=== PATIENT | male | born 1935 | race Caucasian/White ===

== ENCOUNTER 2023-12-21 06:00 | Outpatient (RCR) | payer MEDICARE, SELFPAY | END 2023-12-31 23:59 | disposition home or self-care (01) | LOC: MST 06:00 | PROVIDERS: Visit Provider Nurse Practitioner Family | DX: Z09 Encounter for follow-up examination after completed treatment for conditions other than malignant neoplasm (principal); Z86.73 Personal history of transient ischemic attack (TIA), and cerebral infarction without residual deficits; D64.9 Anemia, unspecified; I69.320 Aphasia following cerebral infarction | CPT/HCPCS: 92507; 92523 ==

== ENCOUNTER 2024-01-01 06:00 | Outpatient (RCR) | payer MEDICARE, SELFPAY | END 2024-01-30 23:59 | disposition home or self-care (01) | LOC: MST 06:00 | PROVIDERS: Visit Provider Nurse Practitioner Family | DX: I69.320 Aphasia following cerebral infarction (principal); D64.9 Anemia, unspecified | CPT/HCPCS: 92507 ==

== ENCOUNTER → 2024-03-24 13:53 | Outpatient (BNVA) | payer MEDICARE, SELFPAY | PROVIDERS: Referring Provider Nurse Practitioner Family; Visit Provider Nurse Practitioner Family | DX: L81.4 Other melanin hyperpigmentation (principal); L82.1 Other seborrheic keratosis; D48.5 Neoplasm of uncertain behavior of skin; L57.0 Actinic keratosis | CPT/HCPCS: 11102; 17000; 69100; 99203 ==

== ENCOUNTER → 2024-04-07 07:53 | Outpatient (BNVA) | payer MEDICARE, SELFPAY | PROVIDERS: Visit Provider Dermatology | DX: C44.311 Basal cell carcinoma of skin of nose (principal) | CPT/HCPCS: 14060; 17311 ==

== ENCOUNTER → 2024-04-14 08:15 | Outpatient (BNVA) | payer MEDICARE, SELFPAY | PROVIDERS: Visit Provider Dermatology | DX: I10 Essential (primary) hypertension (principal); C44.222 Squamous cell carcinoma of skin of right ear and external auricular canal; C44.319 Basal cell carcinoma of skin of other parts of face | CPT/HCPCS: 99213 ==

== ENCOUNTER 2024-04-30 06:30 | Outpatient (RCR) | payer MEDICARE, SELFPAY | END 2024-05-30 23:59 | disposition home or self-care (01) | LOC: MST 06:30 | PROVIDERS: Visit Provider Family Medicine | DX: I69.320 Aphasia following cerebral infarction (principal); I63.9 Cerebral infarction, unspecified | CPT/HCPCS: 92507; 92523 ==

== ENCOUNTER → 2024-05-03 09:28 | Outpatient (BNVA) | payer MEDICARE, SELFPAY | PROVIDERS: Visit Provider Dermatology | DX: C44.219 Basal cell carcinoma of skin of left ear and external auricular canal (principal); C44.222 Squamous cell carcinoma of skin of right ear and external auricular canal | CPT/HCPCS: 15260; 17311 ==

== ENCOUNTER → 2024-05-16 13:22 | Outpatient (BNVA) | payer MEDICARE, SELFPAY | PROVIDERS: Visit Provider Dermatology | DX: C44.222 Squamous cell carcinoma of skin of right ear and external auricular canal (principal) | CPT/HCPCS: 99213 ==

== ENCOUNTER → 2024-05-30 11:09 | Outpatient (BNVA) | payer MEDICARE, SELFPAY | PROVIDERS: Visit Provider Dermatology | DX: C44.222 Squamous cell carcinoma of skin of right ear and external auricular canal (principal); C44.219 Basal cell carcinoma of skin of left ear and external auricular canal | CPT/HCPCS: 99213 ==

== ENCOUNTER 2024-05-31 06:00 | Outpatient (RCR) | payer MEDICARE, SELFPAY | END 2024-06-29 23:59 | disposition home or self-care (01) | LOC: MST 06:00 | PROVIDERS: Visit Provider Family Medicine | DX: I69.320 Aphasia following cerebral infarction (principal); I63.9 Cerebral infarction, unspecified | CPT/HCPCS: 92507 ==

== ENCOUNTER 2024-06-30 05:00 | Outpatient (RCR) | payer MEDICARE, SELFPAY | END 2024-07-30 23:55 | disposition home or self-care (01) | LOC: MST 05:00 | PROVIDERS: Visit Provider Family Medicine | DX: I69.320 Aphasia following cerebral infarction (principal) | CPT/HCPCS: 92507 ==

== ENCOUNTER 2024-07-31 05:00 | Outpatient (RCR) | payer MEDICARE, SELFPAY | END 2024-08-29 23:59 | disposition home or self-care (01) | LOC: MST 05:00 | PROVIDERS: Visit Provider Family Medicine | DX: I69.320 Aphasia following cerebral infarction (principal); I63.9 Cerebral infarction, unspecified | CPT/HCPCS: 92507 ==

== ENCOUNTER 2024-08-30 05:00 | Outpatient (RCR) | payer MEDICARE, SELFPAY | END 2024-09-29 23:59 | disposition home or self-care (01) | LOC: MST 05:00 | PROVIDERS: Visit Provider Family Medicine | DX: I69.320 Aphasia following cerebral infarction (principal) | CPT/HCPCS: 92507 ==

== ENCOUNTER → 2024-09-07 13:16 | Outpatient (BNVA) | payer MEDICARE, SELFPAY | PROVIDERS: Visit Provider Nurse Practitioner Family | DX: L57.8 Other skin changes due to chronic exposure to nonionizing radiation (principal); L73.8 Other specified follicular disorders; Z08 Encounter for follow-up examination after completed treatment for malignant neoplasm; Z85.828 Personal history of other malignant neoplasm of skin; L57.0 Actinic keratosis | CPT/HCPCS: 17000; 99213 ==